=== PATIENT | male | born 1980 | race Caucasian/White ===

== ENCOUNTER 2021-03-22 16:25 | Inpatient (IN) | payer OTHER ==
[2021-03-22 17:38] VITALS: BMI 27.3
[2021-03-22] MEDS ORDERED: MAG HYDROX/AL HYDROX/SIMETH 30 ML UNIT-DOSE CUP PO PRN (20:06)
[2021-03-22] MEDS ORDERED: IBUPROFEN 400 MG TABLET (FP) PO PRN (20:06)
[2021-03-22] MEDS ORDERED: MENTHOL/PHENOL 1 EACH UD MM PRN (20:06)
[2021-03-22] MEDS ORDERED: ONDANSETRON *ODT* 4 MG TABLET SL PRN (20:06)
[2021-03-22] MEDS ORDERED: MAGNESIUM HYDROX 2400MG/30ML ORAL SUSPENSION 30 ML CUP PO PRN (20:06)
[2021-03-22] MEDS ORDERED: BISMUTH SUBSALICYLATE 524 MG/30 ML PO PRN (20:06)
[2021-03-22] MEDS ORDERED: NICOTINE 10 MG CARTRIDGE (INHALER) IH PRN (20:06)
[2021-03-22] MEDS ORDERED: ACETAMINOPHEN 325 MG TABLET (FP) PO PRN ×2 (20:06)
[2021-03-22] MEDS ORDERED: NICOTINE POLACRILEX 2 MG GUM BUC PRN (20:06)
[2021-03-22] MEDS ORDERED: MAGNESIUM CITRATE 300 ML BOTTLE PO PRN (20:06)
[2021-03-22] MEDS ORDERED: cloNIDine HCL 0.1 MG TABLET PO PRN (20:09)
[2021-03-22] MEDS ORDERED: methaDONE HCL 10 MG TABLET (FOR DETOX USE ONLY) PO ONE (20:09)
[2021-03-22] MEDS: THIAMINE HCL 100 MG TABLET (FP) PO SCH (22:10)
[2021-03-22] MEDS: MELATONIN 5 MG TABLETS PO SCH (22:10)
[2021-03-23] MEDS: ALBUTEROL SO4 HFA INHALER IH PRN ×2 (05:40→13:19)
[2021-03-23] MEDS ORDERED: methaDONE HCL 10 MG TABLET (FOR DETOX USE ONLY) ONE (09:37)
[2021-03-23 10:01] LABS: HEMOGLOBIN 14.1 GM/dL (11.7-16.9); MCH 31.6 pg (25.7-33.7); MCHC 34.5 g/dl (32.0-35.9); MEAN CELL VOLUME 91.7 fl (80-96); MEAN PLT VOLUME 8.5 fl (7.5-11.1); PLATELET COUNT 247 10^3/uL (134-434); RBC 4.47 M/mm3 (4.00-5.60); RDW 13.7 % (11.9-15.9); WHITE BLOOD COUNT 10.8 K/mm3 (4.0-10.0)
[2021-03-23 10:09] LABS: CALCIUM 8.9 mg/dL (8.5-10.1)
[2021-03-23 10:10] LABS: ALBUMIN 3.3 g/dl (3.4-5.0); BLOOD UREA NITROGEN 12.1 mg/dL (7-18)
[2021-03-23 10:13] LABS: CREATININE 0.7 mg/dL (0.55-1.3)
[2021-03-23 10:15] LABS: BILIRUBIN,TOTAL 0.2 mg/dL (0.2-1); TOT PROT 6.8 g/dl (6.4-8.2)
[2021-03-23] MEDS: PRENATAL VITAMINS W/ FOLIC ACID TABLET (FP) PO SCH (10:34)
[2021-03-23] MEDS: NICOTINE 21 MG/24 HOURS TOPICAL PATCH TD SCH (10:35)
[2021-03-23] MEDS: THIAMINE HCL 100 MG TABLET (FP) PO SCH (22:14)
[2021-03-23] MEDS: MELATONIN 5 MG TABLETS PO SCH (22:15)
[2021-03-24] MEDS: ALBUTEROL SO4 HFA INHALER IH PRN ×2 (00:12→08:33)
[2021-03-24] MEDS ORDERED: methaDONE HCL 10 MG TABLET (FOR DETOX USE ONLY) PO ONE (10:00)
[2021-03-24] MEDS: PRENATAL VITAMINS W/ FOLIC ACID TABLET (FP) PO SCH (10:45)
[2021-03-24] MEDS: NICOTINE 21 MG/24 HOURS TOPICAL PATCH TD SCH (10:46)
[2021-03-24] MEDS: THIAMINE HCL 100 MG TABLET (FP) PO SCH (22:22)
[2021-03-24] MEDS: MELATONIN 5 MG TABLETS PO SCH (22:22)
[2021-03-24] MEDS: METHOCARBAMOL 500 MG TABLET PO PRN (22:22)
[2021-03-25] MEDS ORDERED: methaDONE HCL 10 MG TABLET (FOR DETOX USE ONLY) ONE (09:33)
[2021-03-25] MEDS: METHOCARBAMOL 500 MG TABLET PO PRN ×2 (10:55→22:42)
[2021-03-25] MEDS: PRENATAL VITAMINS W/ FOLIC ACID TABLET (FP) PO SCH (10:55)
[2021-03-25] MEDS: NICOTINE 21 MG/24 HOURS TOPICAL PATCH TD SCH (10:56)
[2021-03-25] MEDS: THIAMINE HCL 100 MG TABLET (FP) PO SCH (22:42)
[2021-03-25] MEDS: MELATONIN 5 MG TABLETS PO SCH (22:42)
[2021-03-25 23:28] VITALS: BP 116/62; PULSE 70; TEMP 96.4
[2021-03-26] MEDS ORDERED: methaDONE HCL 10 MG TABLET (FOR DETOX USE ONLY) PO ONE (10:00)
== END 2021-03-25 23:36 | disposition left against medical advice (07) | DRG 894 ==
LOC: YASAS 16:25 → Y6N 21:04
PROVIDERS: ADMIT Allergy & Immunology; ATTEND Allergy & Immunology
PROC: HZ2ZZZZ Detoxification Services for Substance Abuse Treatment (ICD-10-PCS; principal; 2021-03-22)
DX: F11.23 Opioid dependence with withdrawal (principal); F15.10 Other stimulant abuse, uncomplicated; F12.20 Cannabis dependence, uncomplicated; F17.210 Nicotine dependence, cigarettes, uncomplicated; D72.829 Elevated white blood cell count, unspecified; J45.909 Unspecified asthma, uncomplicated
CPT/HCPCS: 36415; 80053; 85027; 86780; 93005; 93010; C9803; U0003; U0005